=== PATIENT | female | born 1975 | race Caucasian/White ===

== ENCOUNTER 2016-06-25 15:14 | Emergency (ER) | payer MEDICAID ==
[~2016-06-25] VITALS: Ht 170.2 cm; Wt 90.7 kg
[2016-06-25 15:24] VITALS: BP_SYST 111
[2016-06-25 16:24] LABS: CALCIUM 8.1 mg/dL (8.4-11.0); CREATININE 0.74 mg/dL (0.55-1.30)
[2016-06-25 16:26] LABS: PROTHROMBIN TIME 10.4 SECS (9.5-12.5)
[2016-06-25 16:29] LABS: ALBUMIN 3.4 g/dL (3.4-4.8); TOTAL BILIRUBIN 0.4 mg/dL (0.0-1.0); TOTAL PROTEIN, SERUM 6.9 g/dL (6.4-8.3)
[2016-06-25 16:50] LABS: BASOPHILS % (AUTO) 0.7 % (0.0-2.0); EOSINOPHILS # (AUTO) 0.3 K/uL (0.0-0.4); EOSINOPHILS % (AUTO) 3.6 % (0.0-4.0); HEMATOCRIT 39.4 % (36-48); HEMOGLOBIN 13.4 g/dL (12.0-16.0); MEAN CORPUSCULAR HEMOGLOBIN 30 pg (27-31); MEAN CORPUSCULAR HGB CONC 34 % (32-36); MEAN CORPUSCULAR VOLUME 88 fL (79.0-98.0); MONOCYTES # (AUTO) 0.5 K/uL (0.0-1.0); MONOCYTES % (AUTO) 7.4 % (1.7-9.3); NEUTROPHILS # (AUTO) 4.2 K/uL (1.8-7.7); NEUTROPHILS % (AUTO) 59.3 % (40.0-70.0); PLATELET COUNT (AUTO) 300 K/uL (130-430); RED BLOOD CELL COUNT(AUTO) 4.49 MIL/uL (4.2-6.2); RED CELL DISTRIBUTION WIDTH 13.6 % (9.0-15.0)
[2016-06-25 17:40] VITALS: BP_SYST 111
== END 2016-06-25 17:40 | disposition home or self-care (01) ==
LOC: SED 15:14
DX: N92.0 Excessive and frequent menstruation with regular cycle (principal); J45.909 Unspecified asthma, uncomplicated
CPT/HCPCS: 36415; 76830-TC; 76857; 80053; 81025; 85025; 85610-TC; 85730-TC; 99285

== ENCOUNTER 2019-02-12 22:59 | Emergency (ER) | payer MEDICAID ==
[~2019-02-12] VITALS: Ht 167.6 cm; Wt 84.8 kg
[2019-02-12] MEDS ORDERED: PREDNISONE 20 MG TABLET PO ONE (23:45)
[2019-02-13 00:11] VITALS: BP_SYST 128
== END 2019-02-13 00:11 | disposition home or self-care (01) ==
LOC: SED 22:59
DX: R05 Cough (principal); J45.909 Unspecified asthma, uncomplicated
CPT/HCPCS: 71045; 81025; 86710; 99284; J7512; 36415

== ENCOUNTER 2019-06-28 06:19 | Emergency (ER) | payer MEDICAID ==
[~2019-06-28] VITALS: Ht 170.2 cm; Wt 77.1 kg
[2019-06-28 06:25] VITALS: BP_SYST 126
[2019-06-28] MEDS ORDERED: IPRATROPIUM/ALBUTEROL SULFATE 3 ML AMPUL.NEB (DUONEB) INH ONE (06:45)
[2019-06-28 08:54] LABS: INFLUENZA A&B ANTIGEN SCREEN NEGATIVE FOR A & B (NEGATIVE); STREPTOCOCCUS A SCREEN (RAPID) NEGATIVE (NEGATIVE)
[2019-06-28 09:04] LABS: RESPIRATORY SYNCYTIAL VIRUS NEGATIVE (NEGATIVE)
[2019-06-28 09:05] VITALS: BP_SYST 126
== END 2019-06-28 09:05 | disposition home or self-care (01) ==
LOC: SED 06:19
DX: J20.9 Acute bronchitis, unspecified (principal)
CPT/HCPCS: 36415; 71045; 86403; 86710; 87081; 87420; 94640; 99284

== ENCOUNTER 2022-09-06 11:29 | Emergency (ER) | payer MEDICAID ==
[~2022-09-06] VITALS: Ht 168.9 cm; Wt 90.7 kg
[2022-09-06 11:54] VITALS: BP_SYST 128
[2022-09-06] MEDS ORDERED: NAPR-1172 PO (12:22)
[2022-09-06 13:25] VITALS: BP_SYST 132
== END 2022-09-06 14:00 | disposition home or self-care (01) ==
LOC: SED 11:29
DX: S69.92XA Unspecified injury of left wrist, hand and finger(s), initial encounter (principal); J45.909 Unspecified asthma, uncomplicated; Z79.899 Other long term (current) drug therapy; X58.XXXA Exposure to other specified factors, initial encounter; Y93.89 Activity, other specified; Y92.89 Other specified places as the place of occurrence of the external cause; Y99.8 Other external cause status
CPT/HCPCS: 73140-TC; 99283